=== PATIENT | male | born 1950 | race Caucasian/White ===

== ENCOUNTER → 2022-06-30 11:32 | Outpatient (CLI) | payer MEDICARE, OTHER, SELFPAY ==
[2022-06-30 19:27] LABS: Alanine Aminotransferase 20 IU/L (<50); Albumin 4.1 g/dL (3.5-5.0); Albumin Globulin Ratio 1.4 (1.0-2.8); Alkaline Phosphatase 55 U/L (38-126); Aspartate Aminotransferase 33 IU/L (17-59); BUN Creatinine Ratio 14.9 (6-22); Bilirubin Total 0.6 mg/dL (0.2-1.3); Blood Urea Nitrogen 11 mg/dL (9-20); Calcium 8.9 mg/dL (8.4-10.2); Carbon Dioxide 29 mmol/L (22-32); Chloride 99 mmol/L (98-107); Cholesterol 168 mg/dL (140-199); Estimated Glomerular Filt Rate > 60 mL/min (>60); Globulin 2.9 g/dL (1.7-4.1); Glucose 90 mg/dL (80-110); HDL Cholesterol 88 mg/dL (40-60); HEMOLYSIS < 15 (0-50); LDL Cholesterol Calculated 73 mg/dL (<100); Potassium 4.1 mmol/L (3.4-5.1); Sodium 135 mmol/L (137-145); Triglycerides 34 mg/dL (35-150)
[2022-06-30 19:55] LABS: Prostate Specific Antigen Scrn 0.748 ng/mL (0.1-4.0)
[2022-06-30 20:20] LABS: Hep C Virus Ab w/Reflex Quant NEGATIVE s/c (NEGATIVE)
== END ==
PROVIDERS: PCP Family Medicine; Visit Provider Family Medicine
DX: Z13.6 Encounter for screening for cardiovascular disorders (principal); Z12.5 Encounter for screening for malignant neoplasm of prostate; Z12.11 Encounter for screening for malignant neoplasm of colon; Z13.220 Encounter for screening for lipoid disorders
CPT/HCPCS: 80053; 80061; 86803; G0103

== ENCOUNTER → 2023-07-20 11:29 | Outpatient (CLI) | payer MEDICARE, OTHER, SELFPAY ==
[2023-07-20 13:06] LABS: Add Manual Diff / Slide Review NO; Basophils Absolute Auto 100 /uL (0-100); Basophils Percent Auto 0.7 % (0-2); Eosinophils Absolute Auto 100 /uL (0-450); Eosinophils Percent Auto 1.8 % (2-4); Hematocrit 46.6 % (41-53); Lymphocytes Absolute Auto 2900 /uL (1100-4500); Lymphocytes Percent Auto 37.8 % (25-40); Mean Corpuscular HGB Conc 34.4 % (30-36); Mean Corpuscular Hemoglobin 32.1 PG (26-34); Mean Corpuscular Volume 93.1 fL (80-100); Monocytes Absolute Auto 500 /uL (0-900); Neutrophils Absolute Auto 4000 /uL (1500-7000); Neutrophils Percent Auto 52.7 % (50-75); Platelet Count 257 X10^3/uL (150-400); Red Cell Distribution Width 12.5 % (11.6-14.8); White Blood Cell Count 7.7 X10^3/uL (4.5-11.0)
[2023-07-20 13:34] LABS: Alanine Aminotransferase 25 IU/L (<50); Albumin 4.6 g/dL (3.5-5.0); Albumin Globulin Ratio 1.4 (1.0-2.8); Alkaline Phosphatase 58 U/L (38-126); Aspartate Aminotransferase 36 IU/L (17-59); BUN Creatinine Ratio 22.2 (6-22); Bilirubin Total 1.1 mg/dL (0.2-1.3); Blood Urea Nitrogen 14 mg/dL (9-20); C-Reactive Protein Quant < 0.5 mg/dL (<1.0); Carbon Dioxide 29 mmol/L (22-32); Chloride 98 mmol/L (98-107); Cholesterol 201 mg/dL (140-199); Estimated Glomerular Filt Rate > 60 mL/min (>60); Globulin 3.4 g/dL (1.7-4.1); Glucose 96 mg/dL (80-110); HDL Cholesterol 88 mg/dL (40-60); HEMOLYSIS < 15 (0-50); LDL Cholesterol Calculated 101 mg/dL (<100); Potassium 4.2 mmol/L (3.4-5.1); Sodium 138 mmol/L (137-145); Triglycerides 62 mg/dL (35-150)
[2023-07-20 14:00] LABS: Prostate Specific Antigen Scrn 0.898 ng/mL (0.1-4.0)
[2023-07-20 14:15] LABS: Erythrocyte Sedimentation Rate 3 MM/HR (0-15)
--- NOTE | 2023-07-20 14:21 | DI.MRI.S_ITS ---
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 After the administration of contrast, axial and coronal and sagittal T1 spin echo with fat saturation through the brain. COMPARISON: None. FINDINGS: Image quality: Excellent. CSF spaces: Basal cisterns are patent. No extra-axial fluid collections. Ventricles are normal in size and shape. Brain: No midline shift. No intracranial bleeds or masses. No abnormal intracranial enhancement. There is cerebral volume loss for age. There is periventricular white matter chronic small vessel ischemic change. The brainstem appears normal. Diffusion-weighted images demonstrate no acute ischemic insults. No chronic ischemic insults. Normal intravascular flow voids are present. Visualized cranial nerves demonstrate no areas of abnormal signal, mass lesion or enhancement. Skull and face: Calvarial marrow is normal in signal. Orbits appear normal. Sinuses: Sinuses demonstrate hrvx-by-rbmvkava scattered mucosal thickening. Extensive fluid is present within the mastoid air cells bilaterally, left greater than right.. IMPRESSION: 1. No acute intracranial process. Mild atrophy and chronic microvascular ischemic changes. 2. Prominent fluid within the mastoid air cells. Recommend correlation potential mastoiditis. 3. Visualized cranial nerves demonstrate no areas of abnormal signal, mass lesion or enhancement. Dictated by: Ana Ruff M.D. on 07/20/2023 at 17:25 Approved by: Ana uRff M.D. on 07/20/2023 at 17:26
== END ==
PROVIDERS: PCP Family Medicine; Referring Provider Family Medicine; Visit Provider Family Medicine
DX: Z13.6 Encounter for screening for cardiovascular disorders; Z12.5 Encounter for screening for malignant neoplasm of prostate; H51.0 Palsy (spasm) of conjugate gaze; H49.00 Third [oculomotor] nerve palsy, unspecified eye; R03.0 Elevated blood-pressure reading, without diagnosis of hypertension; Z13.220 Encounter for screening for lipoid disorders; H57.10 Ocular pain, unspecified eye
CPT/HCPCS: 36415; 70553; 80053; 80061; 85025; 85651; 86140; G0103; A9579

== ENCOUNTER → 2023-08-20 09:00 | Outpatient (CLI) | payer MEDICARE, OTHER, SELFPAY ==
--- NOTE | 2023-08-20 09:02 | DI.MRI.S_ITS ---
PROCEDURE: MR ANGIO NECK W CON INDICATIONS: Sixth [abducent] nerve palsy, left eye TECHNIQUE: Axial and sagittal TruFISP through the neck. Coronal dynamic MRA after the administration of contrast in the arterial and venous phases, with rotating 3-dimensional maximum intensity projection (MIP) reformats constructed from subtraction images. COMPARISON: [facility], MR, MR HEAD/BRAIN WO/W CON, 07/20/2023, 16:15. [facility], MR, MR ANGIO HEAD WO CON, 08/20/2023, 9:34. FINDINGS: Image quality: Diagnostic, with note made of motion artifact. Carotid system: Great vessels demonstrate a conventional anatomy as they arise from the aortic arch. The origins of the common carotid arteries appear normal. The calibers and courses of the common carotid arteries are likewise normal. The carotid bifurcations appear normal bilaterally. The internal carotid arteries are widely patent up to the [place]. Note is made of moderate tortuosity of the internal carotid arteries. Posterior circulation: The origins of the vertebral arteries are unremarkable. The more superior portions of the vertebral arteries demonstrate normal course and caliber. Vertebral arteries join to form a normal appearing basilar artery. Miscellaneous: Subclavian arteries are patent throughout. Pre-contrast images through the neck demonstrate no soft tissue abnormalities. IMPRESSION: No imaging explanation is found for this patient's presenting symptoms. Within the arteries of the neck, no hemodynamically significant stenosis can be seen. Any quantitative measurements of stenosis were performed using NASCET criteria. Dictated by: Evangelista Strong M.D. on 08/20/2023 at 16:04 Approved by: Evangelista Strong M.D. on 08/20/2023 at 16:05
--- NOTE | 2023-08-20 09:02 | DI.MRI.S_ITS ---
PROCEDURE: MR ANGIO HEAD WO CON INDICATIONS: Sixth [abducent] nerve palsy, left eye TECHNIQUE: Noncontrast axial 3-D [id number] MR angiogram, with 3-dimensional maximum intensity projection (MIP) reformats of the internal carotid arteries and posterior circulation then performed. COMPARISON: [facility], MR, MR ANGIO NECK W CON, 08/20/2023, 9:43. [facility], MR, MR HEAD/BRAIN WO/W CON, 07/20/2023, 16:15. FINDINGS: Image quality: Excellent. Anterior circulation: Intracranial internal carotid arteries demonstrate normal size and intraluminal flow signal. There is a diminutive left A1 segment, with a corresponding robust right A1 segment. This is considered to be a normal developmental variant of the [place] of [place], of typically no clinical consequence. The flow within the paired anterior cerebral arteries is otherwise normal and symmetric. The flow within the middle cerebral arteries is normal and symmetric. The anterior communicating artery is seen. No stenoses, occlusions, or aneurysms. Posterior circulation: Visualized portions of the vertebral arteries demonstrate normal caliber, and join to form a normal appearing basilar artery. There is focal 50% narrowing seen involving the left P1 segment. The flow within the posterior cerebral arteries is otherwise normal and symmetric. No stenoses, occlusions, or aneurysms. IMPRESSION: No imaging explanation is found for this patient's presenting symptoms. Note made of focal 50% narrowing involving the left P1 segment. Gzejvy-ml-Sfqvll developmental anomalies are incidentally noted. Dictated by: Evangelista Strong M.D. on 08/20/2023 at 16:01 Approved by: Evangelista Strong M.D. on 08/20/2023 at 16:03
== END ==
LOC: MRI 09:01
PROVIDERS: PCP Family Medicine; Referring Provider Psychiatry & Neurology Neurology; Visit Provider Psychiatry & Neurology Neurology
DX: H49.22 Sixth [abducent] nerve palsy, left eye (principal)
CPT/HCPCS: 70544; 70548; A9579

== ENCOUNTER → 2023-09-11 08:52 | Outpatient (CLI) | payer MEDICARE, OTHER, SELFPAY ==
--- NOTE | 2023-09-11 08:53 | DI.CT.S_ITS ---
PROCEDURE: CT CHEST WO CON INDICATIONS: wheezing, atypical chest pain for 3 weeks TECHNIQUE: Noncontrast 5 mm thick sections acquired from the pulmonary apices to the posterior costophrenic angles. 1 mm lung window, 5 mm thick coronal and sagittal and 7 mm axial MIP reformats were then acquired. For radiation dose reduction, the following was used: automated exposure control, adjustment of mA and/or kV according to patient size. COMPARISON: [facility] ([facility]), CR, XR CHEST 2V, 09/08/2023, 10:48. FINDINGS: Image quality: Diagnostic Lungs and pleura: Bibasilar atelectasis/scarring. No areas of dense airspace disease, significant ground-glass opacities, pleural effusions, or nodularity. No suspicious mass/nodules requiring followup, assuming patient is not high risk and has no primary malignancy. Mediastinum, heart, and esophagus: On this noncontrast imaging, there is mild nonspecific distal esophageal wall thickening. Coronary calcifications are seen. No pathologic lymph nodes identified by size criteria. Chest wall and thyroid: No actionable thyroid nodule identified. Chest wall is unremarkable. Upper abdomen: Suspected partially seen liver cysts. Subcentimeter lesions are too small to characterize. Limited noncontrast evaluation of the partially visualized upper abdomen is otherwise unremarkable. Bones: Degenerative changes, no acute or suspicious osseous findings. IMPRESSION: Aside from basilar scarring and atelectasis, no significant pulmonary airspace opacity, nodularity, pleural effusion, or ground-glass opacities are identified. No acute intrathoracic abnormality. There are coronary calcifications. Dictated by: Tam Medrano M.D. on 09/11/2023 at 10:16 Approved by: Tam Medrano M.D. on 09/11/2023 at 10:20
== END ==
LOC: CT 08:53
PROVIDERS: PCP Family Medicine; Referring Provider Family Medicine; Visit Provider Family Medicine
DX: J98.11 Atelectasis (principal); J98.4 Other disorders of lung; R07.89 Other chest pain; R06.2 Wheezing; I25.10 Atherosclerotic heart disease of native coronary artery without angina pectoris
CPT/HCPCS: 71250

== ENCOUNTER → 2023-10-06 10:20 | Outpatient (CLI) | payer MEDICARE, SELFPAY | PROVIDERS: PCP Family Medicine; Visit Provider Family Medicine | DX: R30.0 Dysuria (principal) | CPT/HCPCS: 87077; 87086; 87186 ==

== ENCOUNTER → 2023-10-27 15:05 | Outpatient (CLI) | payer MEDICARE, OTHER, SELFPAY ==
--- NOTE | 2023-10-28 02:41 | DI.NM.S_ITS ---
DATE OF SERVICE: 10/27/2023 PROCEDURE: Exercise treadmill stress test without imaging. ORDERING PROVIDER: Mellissa Mitchell MD. INDICATIONS: The patient is a 73-year-old male with a history of atypical chest discomfort and known coronary artery calcification. FINDINGS: 1. The patient was able to exercise for 7 minutes 46 seconds on a standard Rocael protocol suggesting very good exercise capacity with an DOMINICK of -26%, achieving 10.1 METs. 2. He had a normal heart rate response to exercise, achieving a maximum heart rate of 166 BPM (114% of his predicted maximum). He had a mild hypertensive blood pressure response with a resting blood pressure of 128/70 increasing to a maximum of 210/104. 3. He had no chest discomfort or other anginal symptoms. 4. His resting ECG shows sinus rhythm with normal ST segments. There are no significant ST-segment shifts with exercise but he develops increasingly frequent PVCs, progressing to couplets and a bigeminal pattern with a runs of up to 6 beats of nonsustained ventricular tachycardia at peak exercise with varying QRS morphologies. Aberrant conduction cannot be entirely excluded. His ectopy slowly resolved in recovery. He remained asymptomatic. IMPRESSION: 1. Normal exercise treadmill stress test for ischemia. 2. Very good exercise capacity without angina but a mild hypertensive blood pressure response associated with increasingly frequent ventricular ectopy with short runs of asymptomatic nonsustained ventricular tachycardia with varying morphology at peak exercise. Kane Durán - PRAVEEN/lucia/kt doc#: [id number]/job#: [id number] dd: 10/27/2023 17:02:00 dt: 10/28/2023 02:32:00 DICTATING MD/COPIES TO: Leonardo Quiñonez MD; Dr. Mellissa Mitchell MD. COPIES MNE: EDVIN; ; Dr. Mellissa Mitchell MD.
== END ==
PROVIDERS: PCP Family Medicine; Referring Provider Family Medicine; Visit Provider Family Medicine
DX: R07.89 Other chest pain (principal); I25.10 Atherosclerotic heart disease of native coronary artery without angina pectoris; I25.84 Coronary atherosclerosis due to calcified coronary lesion; I44.0 Atrioventricular block, first degree; I10 Essential (primary) hypertension
CPT/HCPCS: 93017

== ENCOUNTER → 2023-12-14 08:53 | Outpatient (CLI) | payer MEDICARE, OTHER, SELFPAY ==
--- NOTE | 2023-12-14 08:55 | DI.ECHO.S_ITS ---
[facility] : : [address] : : [place] : : [id number] : : Phone: [phone] Echocardiogram Report + + :Name: LUCILLE LOPEZ Study Date: 12/14/2023 Height: 71 in : :[facility] ReadingLocation: Weight: 193 lb : : Gender: Male BSA: 2.1 m2 : :: 1950 Age: 73 yrs BP: 148/95 mmHg: :Reason For Study: VTACH ON EXERCISE STRESS TEST : :Ordering Physician: ELHAM, : :DANDRE Performed By: Hallie Lentz : :Referring: DANDRE LIZARRAGA : + + Interpretation Summary Normal left ventricle size with ejection fraction 60-65%. No significant valvular abnormality. Procedure: A two-dimensional transthoracic echocardiogram with color flow and Doppler was performed. The study quality was technically adequate. There is no prior echocardiogram noted for this patient. The patient was in sinus bradycardia with heart rates between 55--60 bpm during the exam. Left Ventricle: The left ventricle is normal in size and wall thickness. The ejection fraction is estimated to be 60-65%. There are no focal wall motion abnormalities. Diastolic parameters suggest probable normal left ventricular diastolic function and normal filling pressures. Right Ventricle: The right ventricle is normal in size and function. Atria: The left atrial size is normal. Right atrial size is normal. There is no Doppler evidence for an interatrial shunt. Mitral Valve: The mitral valve is normal in structure and function. There is trace mitral regurgitation. Aortic Valve: The aortic valve is trileaflet. The aortic valve opens well. There is no aortic valve stenosis. No aortic regurgitation is present. Tricuspid Valve: The tricuspid valve is normal in structure and function. There is mild tricuspid regurgitation. The right ventricular systolic pressure is estimated to be at least 22 mmHg based on an estimated right atrial pressure of 3 mm Hg. Pulmonic Valve: The pulmonic valve leaflets are thin and pliable; valve motion is normal. There is no pulmonic valvular regurgitation. Great Vessels: The aortic root is normal size. The dimensions of the ascending aorta are normal. The IVC is of normal diameter and collapses greater than 50% with a sniff. This suggests a low right atrial pressure of 3 mm Hg. Pericardium/ Pleura There is no pericardial effusion. There is no pleural effusion. MMode/2D Measurements & Calculations LVIDd: 5.2 cm LVOT diam: 2.1 cm LVIDs: 3.6 cm Ao root diam: 3.6 cm FS: 31.6 % asc Aorta Diam: 3.6 cm IVSd: 1.2 cm Ao Arch Diam (Prox Trans): 2.0 cm LVPWd: 0.76 cm LV garcia. diameter/BSA (cm/m^2): 2.5 LV sys. diameter/BSA (cm/m^2): 1.7 LA A2 area: 19.9 cm2 RA long axis: 4.5 cm LA A4 area: 14.7 cm2 RA area: 10.6 cm2 LA length (vol): 5.0 cm RA vol: 21.3 ml LA vol: 49.8 ml RA : 10.2 ml/m2 LA vol index: 24.0 ml/m2 IVC diam: 1.3 cm RVD1 (basal): 3.7 cm RVD2 (mid): 2.8 cm TAPSE: 2.4 cm Doppler Measurements & Calculations Ao V2 max: 129.6 cm/sec LVOT Max Honorio: 112.2 cm/sec Ao V2 mean: 93.2 cm/sec LV V1 max P.0 mmHg Ao max P.7 mmHg LV V1 VTI: 25.7 cm Ao mean P.8 mmHg DAMIEN(I,D): 3.2 cm2 Ao V2 VTI: 29.4 cm DAMIEN(V,D): 3.1 cm2 sev ratio: 0.87 DAMIEN indexed to BSA (cm^2/m^2): 1.5 MV E max honorio: 60.2 cm/sec TR max honorio: 218.3 cm/sec MV A max honorio: 60.6 cm/sec TR max P.1 mmHg MV E/A: 0.99 PA V2 max: 98.2 cm/sec Med Peak E' Honorio: 6.2 cm/sec PA V2 mean: 70.6 cm/sec E/E' med: 9.6 PA mean P.2 mmHg Lat Peak E' Honorio: 8.8 cm/sec PA pr(Accel): 39.6 mmHg E/E' lat: 6.9 E/e' average: 8.3 MV dec time: 0.32 sec [facility] 93.2 ml Electronically signed by: Melvi Cochran on Reading Physician:12/14/2023 11:19 AM
== END ==
PROVIDERS: PCP Family Medicine; Referring Provider Family Medicine; Visit Provider Family Medicine
DX: I07.1 Rheumatic tricuspid insufficiency (principal); I47.29 Other ventricular tachycardia; I25.10 Atherosclerotic heart disease of native coronary artery without angina pectoris; I25.84 Coronary atherosclerosis due to calcified coronary lesion; I10 Essential (primary) hypertension
CPT/HCPCS: 93306

== ENCOUNTER → 2024-09-28 10:47 | Outpatient (CLI) | payer MEDICARE, OTHER, SELFPAY ==
[2024-09-28 21:57] LABS: Add Manual Diff / Slide Review NO; Basophils Absolute Auto 100 /uL (0-100); Eosinophils Absolute Auto 200 /uL (0-450); Eosinophils Percent Auto 4.1 % (2-4); Hematocrit 45.7 % (41-53); Hemoglobin 15.7 g/dL (13.5-17.5); Lymphocytes Absolute Auto 1700 /uL (1100-4500); Lymphocytes Percent Auto 34.3 % (25-40); Mean Corpuscular HGB Conc 34.3 % (30-36); Mean Corpuscular Hemoglobin 32.2 PG (26-34); Monocytes Absolute Auto 400 /uL (0-900); Monocytes Percent Auto 7.6 % (3-14); Neutrophils Absolute Auto 2600 /uL (1500-7000); Platelet Count 224 X10^3/uL (150-400); Red Blood Cell Count 4.86 X10^6/uL (4.5-5.9); Red Cell Distribution Width 12.6 % (11.6-14.8)
[2024-09-28 22:21] LABS: Alanine Aminotransferase 25 IU/L (<50); Albumin 4.5 g/dL (3.5-5.0); Albumin Globulin Ratio 1.7 (1.0-2.8); Alkaline Phosphatase 54 U/L (38-126); Aspartate Aminotransferase 43 IU/L (17-59); BUN Creatinine Ratio 13.1 (6-22); Bilirubin Total 0.8 mg/dL (0.2-1.3); Blood Urea Nitrogen 13 mg/dL (9-20); Calcium 9.3 mg/dL (8.4-10.2); Carbon Dioxide 27 mmol/L (22-32); Chloride 103 mmol/L (98-107); Cholesterol 162 mg/dL (140-199); Estimated Glomerular Filt Rate > 60 mL/min (>60); Globulin 2.6 g/dL (1.7-4.1); Glucose 92 mg/dL (80-110); HDL Cholesterol 84 mg/dL (40-60); HEMOLYSIS 21 (0-50); LDL Cholesterol Calculated 69 mg/dL (<100); Potassium 3.9 mmol/L (3.4-5.1); Sodium 138 mmol/L (137-145); Total Protein 7.1 g/dL (6.3-8.2); Triglycerides 45 mg/dL (35-150)
[2024-09-28 22:34] LABS: Thyroid Stimulating Hormone 1.97 uIU/mL (0.47-4.68)
[2024-09-28 22:50] LABS: Prostate Specific Antigen Scrn 0.993 ng/mL (0.1-4.0)
== END ==
PROVIDERS: PCP Family Medicine; Visit Provider Family Medicine
DX: Z12.5 Encounter for screening for malignant neoplasm of prostate (principal); I10 Essential (primary) hypertension; Z13.6 Encounter for screening for cardiovascular disorders; I25.10 Atherosclerotic heart disease of native coronary artery without angina pectoris; I25.84 Coronary atherosclerosis due to calcified coronary lesion; I47.29 Other ventricular tachycardia
CPT/HCPCS: 80053; 80061; 84443; 85025; G0103

== ENCOUNTER 2025-01-05 08:42 | Day surgery (SDC) | payer MEDICARE, OTHER, SELFPAY ==
[2024-12-27 10:53] VITALS: BMI 29.2
[2025-01-05 08:53] VITALS: BP 167/92; PULSE 73; RESP 16; TEMP 36.4; O2SAT 97; BMI 27.2
[2025-01-05] MEDS: ACETAMINOPHEN 325 MG TABLET 975 MG PO (08:59)
[2025-01-05] MEDS: LACTATED RINGERS 1,000 ML 42 ML IV (08:59)
[2025-01-05 09:20] LABS: COVID19 -Nasal RAPID Negative (Negative)
--- NOTE | 2025-01-05 09:20 | P.HP_ITS ---
History of Present Illness History of Present Illness Date Patient Seen: 01/05/25 Time Patient Seen: 09:21 Chief complaint: ENT Narrative: 74-year-old male last seen in clinic 10/31/2024 presents with his for scheduled septoplasty and inferior turbinate reduction. He received cardiac clearance 10/25, PCP clearance 11/14. Within the last 2 weeks he returned from [place] with a cough and URI symptoms, continues to improve, COVID test negative at home, pending this morning. No other health changes, wishes to proceed. [facility] Medical History NSVT (nonsustained ventricular tachycardia) Microvascular cranial nerve palsy History of pneumonia Mild bibasilar atelectasis Coronary artery calcification of [place] artery 1st degree AV block Wheeze HTN (hypertension) Palsy of conjugate gaze Screening for thyroid disorder Encounter for vitamin deficiency screening Screening for HIV (human immunodeficiency virus) Screening for cardiovascular condition Screening for prostate cancer Social History household members: spouse Smoking Status: Never smoker alcohol intake: former additional social history: brother: had mild [place] -- 74 yo 2 yrs ago father: [place] 70s also 09/2024 Meds Home Medications and Allergies Home Medications Medication Instructions Recorded Confirmed Type aspirin 81 mg tablet,delayed 81 mg PO DAILY 01/05/25 01/05/25 History release Allergies Allergy/AdvReac Type Severity Reaction Status Date / Time No Known Drug Allergies Allergy Verified 01/05/25 08:52 Review of Systems Review of Systems Narrative: Negative except as listed in the HPI Exam Vital Signs (past 8 hours): - 01/05/25 08:53 Temperature 97.5 F L Pulse Rate 73 Respiratory Rate 16 Blood Pressure 167/92 H Pulse Oximetry 97 Oxygen Delivery Method Room Air Oxygen Delivery Method Room Air Narrative Exam Narrative: Well-developed well-nourished, heart regular rate and rhythm without murmur, lungs clear to auscultation bilaterally Objective Labs Labs: Laboratory Results - last 24 hr 01/05/25 08:40 SARS-CoV-2 (PCR) Negative Assessment & Plan Assessment & Plan narrative: Assessment: Septal deviation, nasal airway obstruction, inferior turbinate hypertrophy Plan: Following discussion of the material risks benefits complications and alternatives, the patient elected to proceed. Time-Based Coding :: [TOTAL MINUTES] spent with patient and on the chart (including review of chart, obtaining history, exam, reviewing outside data, placing orders, documenting exam and treatment plan, and counseling patient) on [DATE].
--- NOTE | 2025-01-05 09:20 | PM.PREOP ---
Pre-operative Note Interval Note History & Physical reviewed/Exam performed by Physician: Yes Changes to H&P: No
--- NOTE | 2025-01-05 09:23 | PM.OP.1 ---
Operative Date/Time/Diagnoses Date of procedure: 01/05/25 Time of procedure: 11:00 Pre-op diagnosis: Septal deviation, nasal airway obstruction, inferior turbinate hypertrophy Post-op diagnosis: same Procedure & Clinicians Procedure: 1. Septoplasty 2. Bilateral inferior turbinate reduction via intramural cautery Same procedure as scheduled: Yes Indications: 74 Year old with the above diagnoses incompletely managed with medical therapy presents for the above procedure. Following discussion of the material risks benefits complications and alternatives, the patient elected to proceed. Surgeon: Bhavik Lea Click Yes if Unassisted: Yes Anesthesia Type: General and Local Operative Notes Findings: 3 to 4+ right anterior primarily cartilaginous septal deviation, left superior caudal deviation partially persistent, nbvs-jwxsgea-wfrz-right inferior turbinate hypertrophy, no flap perforations Estimated Blood Loss (mL): 50 Procedure in detail: Following identification and confirmation of consent as well as preoperative Afrin nasal spray, the patient was brought to the operating room suite and placed in the supine position. General endotracheal anesthesia was administered. I infiltrated the septum widely bilaterally with 1% lidocaine 1 100,000 epinephrine followed by temporary packing with cotton with Afrin and 4% lidocaine. Following sterile prep and drape, the packing was removed and I performed a right simran-transfixion incision, elevated the right mucoperichondrial and mucoperiosteal flap. I disarticulated near the bony/cartilaginous junction and elevated the left mucoperiosteal flap. Deviated portions of the perpendicular plate of the ethmoid and vomer were resected. The residual quadrilateral cartilage was further straightened by trimming it inferiorly as well as reducing the maxillary crest. A 2 mm strip of cartilage paralleling the residual 1 cm dorsal and caudal strut was resected to further straighten the quadrilateral cartilage. The hemitransfixion incision was closed with interrupted 5 0 chromic followed by a running 4 0 plain gut mattress suture to reapproximate the septal flaps. At case completion, 20/1000th of an inch silastic splints were placed bilaterally, sutured anteriorly with a single 4 0 nylon. The head of each inferior turbinate had been previously infiltrated with additional local anesthetic and a 25 gauge spinal needle was used to impale the length of the turbinate, with cautery on a setting of 15 activated on slow withdrawal over 2 passes left, 1 pass right. The turbinates were then outfractured. The procedure completed, sponge and needle counts were correct and the patient was extubated in the operating room and taken to recovery room in stable condition without known complication. Postoperative care: Nasal saline every hour while awake, Polysporin to the nostrils at all times, begin irrigations t.i.d. beginning pod 1. Humidifier at the bedside blowing on the face. Tylenol alternating with Advil for pain control, oxycodone if necessary for breakthrough pain. Complications: none Post-operative Condition: stable Disposition: same day surgery Plan for aftercare: Nasal saline every hour while awake, begin irrigations t.i.d. tomorrow if desired. Polysporin to the nostrils at all times, Tylenol alternating with Advil for pain control, oxycodone for breakthrough pain. Elevate head of bed, no nose blowing, no straining for 2 weeks. Ice directly under the nose on the upper lip has tolerated 24-48 hours at a minimum. Follow-up in 1 week for nasal splint removal.
--- NOTE | 2025-01-05 10:00 | SUR.OPER ---
Supine on padded OR bed, head on pillow, Right arms secured on padded arm boards at <90 degrees abduction, left arm padded and tucked, legs uncrossed, safety belt at thigh, tape over blanket over lower legs.
[2025-01-05] MEDS: OXYMETAZOLINE NASAL SPRAY 30 ML 2 SPRAYS NASAL (10:04)
[2025-01-05] MEDS: BACITRACIN OINT 0.9 GM PCKT 1 APPLIC TOP (10:06)
[2025-01-05] MEDS: LIDOCAINE 4% SOLN 50 ML 20 ML TOP (10:06)
[2025-01-05] MEDS: LIDOCAINE 1% W/EPI 10ML 20 ML INJ (10:07)
[2025-01-05 11:15] VITALS: BP 140/70; PULSE 77; RESP 16; TEMP 36.2; O2SAT 98
[2025-01-05 11:20] VITALS: BP 146/74; PULSE 68; RESP 16; O2SAT 98
[2025-01-05 11:41] VITALS: BP 145/74; PULSE 78; RESP 16; TEMP 36.1; O2SAT 98
== END 2025-01-05 12:00 | disposition home or self-care (01) ==
PROVIDERS: PCP Family Medicine; Referring Provider Otolaryngology; Visit Provider Otolaryngology
PROC: (CPT 30520; principal; 2025-01-05 09:15)
DX: J34.2 Deviated nasal septum (principal); J34.3 Hypertrophy of nasal turbinates; Z11.52 Encounter for screening for COVID-19; J98.8 Other specified respiratory disorders
CPT/HCPCS: 30520; 30802; 87635; J1100; J2405; J2704; J3010